=== PATIENT | male | born 1945 | race Caucasian/White ===

== ENCOUNTER 2017-11-27 11:14 | Emergency (ER) | payer MEDICARE, OTHER ==
[~2017-11-27] VITALS: Ht 180.3 cm; Wt 98.2 kg
[~2017-11-27 11:14] MED LIST: AMLO-512 PO; ASPI-1182 PO; ATEN25TA PO; ATOR10TA84 PO; CLOZ100 PO; CLOZ25TA4 PO; FOLI1 PO; LISI-660 PO; LITH600 PO; PANT40TA25 PO; RISP.5 PO; SITA50 PO
[2017-11-27] MEDS ORDERED: RisperiDONE 1 MG TABLET PO ONE (12:00)
[2017-11-27] MEDS ORDERED: CloZAPine 100 MG TABLET PO ONE (12:00)
[2017-11-27] MEDS ORDERED: TAMS0.4C32 PO (12:01)
[2017-11-27] MEDS ORDERED: HALO100V4 IM (12:01)
[2017-11-27] MEDS ORDERED: DONE10TA8 PO (12:01)
[2017-11-27] MEDS ORDERED: HALO5TAB2 PO (12:01)
[2017-11-27] MEDS ORDERED: BENZ1TAB10 PO (12:01)
[2017-11-27] MEDS ORDERED: METO50 PO (12:01)
[2017-11-27] MEDS ORDERED: NITR.4 SL (12:01)
[2017-11-27] MEDS ORDERED: PROV5 PO (12:01)
[2017-11-27] MEDS ORDERED: ASPI-891 PO (12:01)
[2017-11-27] MEDS ORDERED: MEMA10TA11 PO (12:01)
[2017-11-27] MEDS ORDERED: LISI-661 PO (12:01)
[2017-11-27] MEDS ORDERED: IBUP-2071 PO (12:01)
[2017-11-27] MEDS ORDERED: HALO10 PO (12:01)
[2017-11-27] MEDS ORDERED: FAMO20 PO (12:01)
[2017-11-27] MEDS ORDERED: DOCU250C91 PO (12:01)
[2017-11-27] MEDS ORDERED: CLOP75 PO (12:01)
[2017-11-27] MEDS ORDERED: SENN-175 PO (12:01)
[2017-11-27] MEDS ORDERED: OXCA300T PO (12:01)
[2017-11-27] MEDS ORDERED: METF500T6 PO (12:01)
[2017-11-27] MEDS ORDERED: HALOPERIDOL 5 MG TABLET PO ONE (12:15)
[2017-11-27] MEDS ORDERED: OXcarbazepine 300 MG TABLET PO ONE (12:15)
[2017-11-27] MEDS ORDERED: BENZTROPINE MESYLATE 1 MG TABLET PO ONE (12:15)
[2017-11-27 12:23] LABS: BASOPHILS % (AUTO) 1.3 % (0.0-2.0); EOSINOPHILS % (AUTO) 3.2 % (1.0-6.0); HEMATOCRIT 35.6 % (41-53); HEMOGLOBIN 12.6 g/dL (13.5-17.5); LYMPHOCYTES # (AUTO) 1.2 K/uL (1.0-4.8); LYMPHOCYTES % (AUTO) 16.7 % (22.0-44.0); MEAN CORPUSCULAR HEMOGLOBIN 31.5 pg (26.0-34.0); MEAN CORPUSCULAR HGB CONC 35.3 G/dL (31.0-37.0); MEAN CORPUSCULAR VOLUME 89 fL (80-100); MONOCYTES # (AUTO) 0.6 K/uL (0.1-1.0); MONOCYTES % (AUTO) 9.2 % (2.0-9.0); NEUTROPHILS # (AUTO) 4.9 K/uL (1.8-7.7); NEUTROPHILS % (AUTO) 69.6 % (40.0-70.0); PLATELET COUNT (AUTO) 212 K/uL (150-450); RED CELL DISTRIBUTION WIDTH 13.5 % (11.5-14.5)
[2017-11-27 12:31] LABS: ANION GAP 5 mmol/L (8-16); CALCIUM, TOTAL 9.2 mg/dL (8.8-10.5); CARBON DIOXIDE 26 mmol/L (22-29); CHLORIDE 97 mmol/L (98-107); CREATININE 0.93 mg/dL (0.60-1.30); GLOMERULAR FILTR. RATE CALC > 60 mL/min (>60); GLUCOSE,RANDOM 104 mg/dL (70-110); POTASSIUM 4.5 mmol/L (3.5-5.1); SODIUM SERUM 128 mmol/L (136-145); UREA NITROGEN, BLOOD 14 mg/dL (7-18)
[2017-11-27 12:37] LABS: ALANINE AMINOTRANSFERASE 21 U/L (12-78); ALBUMIN 3.6 g/dL (3.4-5.0); ALKALINE PHOSPHATASE 71 U/L (46-116); ASPARTATE AMINOTRANSFERASE 14 U/L (15-37); BILIRUBIN,TOTAL 0.2 mg/dL (0.1-1.0)
[2017-11-27] MEDS ORDERED: METOPROLOL TARTRATE 50 MG TABLET PO ONE (12:45)
[2017-11-27] MEDS ORDERED: LORazepam 2 MG TABLET PO ONE (12:45)
[2017-11-27] MEDS ORDERED: LISINOPRIL 10 MG TABLET PO ONE (12:45)
[2017-11-27 13:38] VITALS: BP 180/66
== END 2017-11-27 17:11 | disposition home or self-care (01) ==
LOC: EMS 11:16
DX: F20.9 Schizophrenia, unspecified (principal); F17.210 Nicotine dependence, cigarettes, uncomplicated; I11.0 Hypertensive heart disease with heart failure; I50.9 Heart failure, unspecified; E11.9 Type 2 diabetes mellitus without complications; E78.00 Pure hypercholesterolemia, unspecified; I25.2 Old myocardial infarction; F03.90 Unspecified dementia, unspecified severity, without behavioral disturbance, psychotic disturbance, mood disturbance, and anxiety; K21.9 Gastro-esophageal reflux disease without esophagitis; Z79.899 Other long term (current) drug therapy; Z88.0 Allergy status to penicillin; Z79.82 Long term (current) use of aspirin
CPT/HCPCS: 36415; 80053; 85025; 93005; 99285; 99406; G0480

== ENCOUNTER 2018-02-20 11:25 | Emergency (ER) | payer MEDICARE, OTHER ==
[~2018-02-20] VITALS: Ht 177.8 cm; Wt 97.6 kg
[~2018-02-20 11:25] MED LIST changes: -AMLO-512 PO; -ASPI-1182 PO; +ASPI-891 PO; -ATEN25TA PO; -ATOR10TA84 PO; +BENZ1TAB10 PO; +CLOP75 PO; -CLOZ100 PO; -CLOZ25TA4 PO; +DOCU250C91 PO; +DONE10TA8 PO; +FAMO20 PO; -FOLI1 PO; +HALO10 PO; +HALO100V4 IM; +HALO5TAB2 PO; +IBUP-2071 PO; -LISI-660 PO; +LISI-661 PO; -LITH600 PO; +MEMA10TA11 PO; +METF-960 PO; +METO50 PO; +NITR.4 SL; +OXCA300T29 PO; -PANT40TA25 PO; +PROV5 PO; -RISP.5 PO; +SENN-175 PO; -SITA50 PO; +TAMS0.4C32 PO
[2018-02-20] MEDS ORDERED: LORA1TAB3 PO (11:58)
[2018-02-20 12:09] LABS: GLUCOSE,POINT OF CARE 116 MG/DL (70-110)
[2018-02-20 12:33] LABS: BASOPHILS % (AUTO) 0.7 % (0.0-2.0); EOSINOPHILS % (AUTO) 2.8 % (1.0-6.0); HEMOGLOBIN 12.5 g/dL (13.5-17.5); LYMPHOCYTES % (AUTO) 11.4 % (22.0-44.0); MEAN CORPUSCULAR HEMOGLOBIN 31.8 pg (26.0-34.0); MEAN CORPUSCULAR HGB CONC 35.7 G/dL (31.0-37.0); MEAN CORPUSCULAR VOLUME 89 fL (80-100); MONOCYTES # (AUTO) 0.8 K/uL (0.1-1.0); MONOCYTES % (AUTO) 9.4 % (2.0-9.0); NEUTROPHILS # (AUTO) 6.4 K/uL (1.8-7.7); NEUTROPHILS % (AUTO) 75.7 % (40.0-70.0); PLATELET COUNT (AUTO) 195 K/uL (150-450); RED BLOOD CELL COUNT(AUTO) 3.92 MIL/uL (4.50-5.90); RED CELL DISTRIBUTION WIDTH 14.3 % (11.5-14.5)
[2018-02-20 12:44] LABS: ANION GAP 3 mmol/L (8-16); CALCIUM, TOTAL 8.9 mg/dL (8.8-10.5); CARBON DIOXIDE 29 mmol/L (22-29); CHLORIDE 95 mmol/L (98-107); CREATININE 0.87 mg/dL (0.60-1.30); GLOMERULAR FILTR. RATE CALC > 60 mL/min (>60); GLUCOSE,RANDOM 109 mg/dL (70-110); POTASSIUM 4.3 mmol/L (3.5-5.1); SODIUM SERUM 127 mmol/L (136-145); UREA NITROGEN, BLOOD 10 mg/dL (7-18)
[2018-02-20 13:00] LABS: ALANINE AMINOTRANSFERASE 20 U/L (12-78); ALBUMIN 3.6 g/dL (3.4-5.0); ALKALINE PHOSPHATASE 63 U/L (46-116); ASPARTATE AMINOTRANSFERASE 17 U/L (15-37); BILIRUBIN,TOTAL 0.3 mg/dL (0.1-1.0); THYROID STIMULATING HORMONE 0.76 uIU/mL (0.36-3.74); TOTAL PROTEIN, SERUM 6.7 g/dL (6.4-8.2)
[2018-02-20] MEDS ORDERED: SODIUM CHLORIDE 0.9% 1,000 ML IV ONE (13:15)
[2018-02-20] MEDS ORDERED: SODIUM CHLORIDE 1 GM TABLET PO ONE (13:15)
[2018-02-20 13:37] LABS: AMPHET/METH SCREEN,URINE NEGATIVE (NEGATIVE); BARBITURATE SCREEN, URINE NEGATIVE (NEGATIVE); BENZODIAZEPINES SCREEN,URINE NEGATIVE (NEGATIVE); CANNABINOID SCREEN,URINE NEGATIVE (NEGATIVE); COCAINE SCREEN,URINE NEGATIVE (NEGATIVE); METHADONE SCREEN, URINE NEGATIVE (NEGATIVE); OPIATE SCREEN,URINE NEGATIVE (NEGATIVE)
[2018-02-20 13:43] LABS: PHENCYCLIDINE SCREEN,URINE NEGATIVE (NEGATIVE)
[2018-02-20 13:44] LABS: BILIRUBIN,URINE NEGATIVE (NEGATIVE); GLUCOSE, URINE (UA) NEGATIVE (NEGATIVE); KETONES,URINE NEGATIVE (NEGATIVE); LEUKOCYTE ESTERASE ,URINE MODERATE (NEGATIVE); NITRATE,URINE NEGATIVE (NEGATIVE); OCCULT BLOOD,URINE NEGATIVE (NEGATIVE); PROTEIN,URINE NEGATIVE (NEGATIVE); UROBILINOGEN,URINE 0.2 mg/dL (<=1.0)
[2018-02-20 13:51] LABS: APPEARANCE,URINE SLIGHTLY CLOUDY (CLEAR)
[2018-02-20 13:52] LABS: BACTERIA,URINE Moderate /HPF (None Seen); RBC,URINE 0-2 /HPF (0-2); YEAST,URINE Moderate /HPF (None Seen)
[2018-02-20] MEDS ORDERED: CIPROFLOXACIN HCL 250 MG TABLET PO ONE (14:00)
[2018-02-20 15:24] LABS: ANION GAP 8 mmol/L (8-16); CARBON DIOXIDE 27 mmol/L (22-29); CHLORIDE 94 mmol/L (98-107); CREATININE 0.96 mg/dL (0.60-1.30); GLOMERULAR FILTR. RATE CALC > 60 mL/min (>60); GLUCOSE,RANDOM 146 mg/dL (70-110); POTASSIUM 4.5 mmol/L (3.5-5.1); SODIUM SERUM 129 mmol/L (136-145); UREA NITROGEN, BLOOD 10 mg/dL (7-18)
[2018-02-20 15:37] VITALS: BP 140/69
== END 2018-02-20 18:05 | disposition home or self-care (01) ==
LOC: EMS 11:26
DX: F20.9 Schizophrenia, unspecified (principal); N39.0 Urinary tract infection, site not specified; E87.1 Hypo-osmolality and hyponatremia; F17.210 Nicotine dependence, cigarettes, uncomplicated; F31.9 Bipolar disorder, unspecified; I11.0 Hypertensive heart disease with heart failure; I50.9 Heart failure, unspecified; J44.9 Chronic obstructive pulmonary disease, unspecified; F03.90 Unspecified dementia, unspecified severity, without behavioral disturbance, psychotic disturbance, mood disturbance, and anxiety; E11.9 Type 2 diabetes mellitus without complications; K21.9 Gastro-esophageal reflux disease without esophagitis; E78.00 Pure hypercholesterolemia, unspecified; I25.2 Old myocardial infarction; I73.9 Peripheral vascular disease, unspecified; N40.0 Benign prostatic hyperplasia without lower urinary tract symptoms; Z98.62 Peripheral vascular angioplasty status; Z79.1 Long term (current) use of non-steroidal anti-inflammatories (NSAID); Z79.82 Long term (current) use of aspirin; Z79.01 Long term (current) use of anticoagulants; Z79.84 Long term (current) use of oral hypoglycemic drugs; Z79.899 Other long term (current) drug therapy; Z88.0 Allergy status to penicillin
CPT/HCPCS: 36415; 80048; 80053; 80307; 81001; 82962; 84443; 85025; 87086; 99284; G0480; J7030